=== PATIENT | male | born 1980 | race Two or more races ===

== ENCOUNTER 2020-03-12 19:08 | Emergency (ER) | payer MEDICAID, OTHER ==
--- NOTE | 2020-03-12 20:58 | EDM.PDOC ---
ED HPI GENERAL MEDICAL PROBLEM - General Chief Complaint: Respiratory Problem Stated Complaint: COUGH/SOB Time Seen by Provider: 03/12/20 20:42 Source of Information: Reports: Patient, RN Notes Reviewed History Limitations: Reports: Language Barrier - History of Present Illness INITIAL COMMENTS - FREE TEXT/NARRATIVE: 39-year-old gentleman presents emergency department a complaint of cough and shortness of breath, he has been short of breath for 1 day with a cough 1 day. Recently moved here from [place] back in December there is a language barrier the translation service was present Treatments [employer]: Reports: Other (see below) Other Treatments [employer]: face mask, temp Chest Pain Score (Numeric/FACES): 7 - Related Data Allergies Allergy/AdvReac Type Severity Reaction Status Date / Time No Known Allergies Allergy Verified 03/12/20 19:38 Home Meds: Home Meds NK [No Known Home Meds] 03/12/20 [History] Past Medical History Musculoskeletal History: Reports: Fracture - Past Surgical History Musculoskeletal Surgical History: Reports: ORIF Social & Family History - Tobacco Use Smoking Status *Q: Current Every Day Smoker Years of Tobacco use: 25 Packs/Tins Daily: 0.5 - Caffeine Use Caffeine Use: Reports: Coffee - Recreational Drug Use Recreational Drug Use: No ED ROS GENERAL - Review of Systems Review Of Systems: See Below Constitutional: Denies: Fever, Chills HEENT: Reports: No Symptoms Respiratory: Reports: Shortness of Breath, Cough. Denies: Sputum Cardiovascular: Reports: Dyspnea on Exertion GI/Abdominal: Reports: No Symptoms : Reports: No Symptoms ED EXAM, GENERAL - Physical Exam Exam: See Below Exam Limited By: No Limitations General Appearance: Alert, WD/WN, No Apparent Distress Nose: Normal Inspection, Normal Mucosa, No Blood Throat/Mouth: Normal Inspection, Normal Lips, Normal Teeth, Normal Gums, Normal Oropharynx, Normal Voice, No Airway Compromise Head: Atraumatic, Normocephalic Neck: Normal Inspection, Supple, Non-Tender, Full Range of Motion Respiratory/Chest: No Respiratory Distress, Lungs Clear, Normal Breath Sounds, No Accessory Muscle Use, Chest Non-Tender Cardiovascular: Regular Rate, Rhythm, No Murmur GI/Abdominal: Soft, Non-Tender Course - Vital Signs Last Recorded V/S: Last Vital Signs Temp 97.2 F 03/12/20 21:29 Pulse 109 H 03/12/20 21:29 Resp 16 03/12/20 21:29 BP 145/88 H 03/12/20 21:29 Pulse Ox 97 03/12/20 21:29 - Orders/Labs/Meds Orders: Active Orders 24 hr Category Date Time Status Chest 2V [CR] Urgent Exams 03/12/20 20:44 Taken CULTURE STREP A CONFIRMATION [RM] Stat Lab 03/12/20 21:28 Results STREP SCRN A RAPID W CULT CONF [RM] Stat Lab 03/12/20 21:28 Results Isolation [COMM] Routine Oth 03/12/20 20:53 Ordered Labs: Laboratory Tests 03/12/20 03/12/20 03/12/20 Range/Units 21:05 21:05 21:05 WBC 15.4 H (4.5-11.0) K/uL RBC 4.85 (4.30-5.90) M/uL Hgb 13.4 (12.0-15.0) g/dL Hct 41.9 (40.0-54.0) % MCV 86 (80-98) fL MCH 28 (27-31) pg MCHC 32 (32-36) % Plt Count 290 (150-400) K/uL Neut % (Auto) 68 H (36-66) % Lymph % (Auto) 23 L (24-44) % [place] % (Auto) 8 H (2-6) % Eos % (Auto) 1 L (2-4) % Baso % (Auto) 0 (0-1) % Sodium 141 (140-148) mmol/L Potassium 4.5 (3.6-5.2) mmol/L Chloride 103 (100-108) mmol/L Carbon Dioxide 32 (21-32) mmol/L Anion Gap 6.3 (5.0-14.0) mmol/L BUN 19 H (7-18) mg/dL Creatinine 1.4 H (0.8-1.3) mg/dL Est Cr Clr Drug Dosing 75.45 mL/min Estimated GFR (MDRD) 56 L (>60) Glucose 96 (74-106) mg/dL Lactic Acid 1.6 (0.4-2.0) mmol/L Calcium 8.8 (8.5-10.1) mg/dL Total Bilirubin 0.4 (0.2-1.0) mg/dL AST 16 (15-37) U/L ALT 42 (12-78) U/L Alkaline Phosphatase 71 (46-116) U/L Lactate Dehydrogenase 134 (85-227) U/L C-Reactive Protein 3.83 H (0.0-0.3) mg/dL Total Protein 7.0 (6.4-8.2) g/dL Albumin 3.6 (3.4-5.0) g/dL Globulin 3.4 (2.3-3.5) g/dL Albumin/Globulin Ratio 1.1 L (1.2-2.2) Procalcitonin ng/mL 03/12/20 Range/Units 21:05 WBC (4.5-11.0) K/uL RBC (4.30-5.90) M/uL Hgb (12.0-15.0) g/dL Hct (40.0-54.0) % MCV (80-98) fL MCH (27-31) pg MCHC (32-36) % Plt Count (150-400) K/uL Neut % (Auto) (36-66) % Lymph % (Auto) (24-44) % [place] % (Auto) (2-6) % Eos % (Auto) (2-4) % Baso % (Auto) (0-1) % Sodium (140-148) mmol/L Potassium (3.6-5.2) mmol/L Chloride (100-108) mmol/L Carbon Dioxide (21-32) mmol/L Anion Gap (5.0-14.0) mmol/L BUN (7-18) mg/dL Creatinine (0.8-1.3) mg/dL Est Cr Clr Drug Dosing mL/min Estimated GFR (MDRD) (>60) Glucose (74-106) mg/dL Lactic Acid (0.4-2.0) mmol/L Calcium (8.5-10.1) mg/dL Total Bilirubin (0.2-1.0) mg/dL AST (15-37) U/L ALT (12-78) U/L Alkaline Phosphatase (46-116) U/L Lactate Dehydrogenase (85-227) U/L C-Reactive Protein (0.0-0.3) mg/dL Total Protein (6.4-8.2) g/dL Albumin (3.4-5.0) g/dL Globulin (2.3-3.5) g/dL Albumin/Globulin Ratio (1.2-2.2) Procalcitonin < 0.05 ng/mL Departure - Departure Time of Disposition: 22:25 Disposition: Home, Self-Care 01 Condition: Fair Clinical Impression: Viral syndrome - Discharge Information Instructions: Viral Respiratory Infection, [id number] Referrals: PCP,None [Primary Care Provider] - Forms: ED Department Discharge, ED Return to Work/School Form Additional Instructions: Symptomatic care recommend self quarantine until COVID-19 test returns ,call return to the emergency department worsening of symptoms Sepsis Event Note - Focused Exam Vital Signs: Vital Signs Temp Pulse Resp BP Pulse Ox 03/12/20 21:29 97.2 F 109 H 16 145/88 H 97 03/12/20 20:09 97.2 F 109 H 16 145/88 H 97 Date Exam was Performed: 03/12/20 Time Exam was Performed: 22:22 - My Orders Last 24 Hours: My Active Orders 03/12/20 20:44 Chest 2V [CR] Urgent 03/12/20 20:53 Isolation [COMM] Routine 03/12/20 21:28 CULTURE STREP A CONFIRMATION [RM] Stat STREP SCRN A RAPID W CULT CONF [RM] Stat - Assessment/Plan Last 24 Hours: My Active Orders 03/12/20 20:44 Chest 2V [CR] Urgent 03/12/20 20:53 Isolation [COMM] Routine 03/12/20 21:28 CULTURE STREP A CONFIRMATION [RM] Stat STREP SCRN A RAPID W CULT CONF [RM] Stat Plan: Assessment Acuity = acute Site and laterality = viral syndrome Etiology = unknown Manifestations = cough Location of injury = Home Lab values = WBC elevated 15.4 consistent leukocytosis, creatinine elevated 1.4 consistent chronic renal failure stage T3a lactic acid normal 1.6 CRP elevated 3.83 procalcitonin was negative chest x-ray I did review films myself I cannot appreciate any acute process, the official read from radiology is pending, influenza was negative strep was negative COVID 19 is pending Plan Recommend symptomatic care recommend self quarantine until COVID test returns This note was dictated using [employer] voice recognition software please call with any questions on syntax or grammar.
--- NOTE | 2020-03-13 11:15 | CR ---
CHEST: 2 view CLINICAL HISTORY:Cough COMPARISON:None FINDINGS: The heart size, pulmonary vascularity and hilar structures are normal. No infiltrate effusion or pneumothorax is seen. IMPRESSION: No acute cardiopulmonary process.
== END 2020-03-12 22:55 | disposition home or self-care (01) ==
LOC: JP.ED 19:08
DX: B34.9 Viral infection, unspecified (principal)
CPT/HCPCS: 36415; 71046; 71046-26; 80053; 83605; 83615; 84145; 85025; 86140; 87081; 87804; 87804-59; 87880-QW; 99283; 99285-25; U0002